=== PATIENT | female | born 1965 ===

== ENCOUNTER 2018-01-29 19:58 | Observation (INO) | payer SELFPAY ==
[2018-01-29] MEDS ORDERED: Sodium Chloride 0.9% 1,000 ML IV STA ×2 (20:32→23:37)
--- NOTE | 2018-01-29 20:35 | ED PDOC ---
HPI: Abdomen Time Seen by Provider: 01/29/18 20:18 Chief Complaint (Nursing): Abdominal Pain Chief Complaint (Provider): abdominal pain History Per: Patient History/Exam Limitations: no limitations Onset/Duration Of Symptoms: Hrs (1) Current Symptoms Are (Timing): Still Present Location Of Pain/Discomfort: RLQ Associated Symptoms: Nausea, Vomiting Additional History Per: Patient Additional Complaint(s): 52 y/o female brought in by EMS for evaluation of right-sided abdominal pain x 1 hour. Associated nausea, vomiting. Patient states symptoms started shortly after eating a can of spaghetti-o's. Denies fever, chest pain, shortness of breath, palpitations, changes in bowel movements, urinary symptoms. Past Medical History Reviewed: Historical Data, Nursing Documentation, Vital Signs Vital Signs: Last Vital Signs Temp 99.5 F 01/30/18 03:39 Pulse 94 H 01/30/18 03:39 Resp 18 01/30/18 03:39 BP 158/95 H 01/30/18 03:39 Pulse Ox 98 01/30/18 04:12 - Medical History PMH: Diabetes, HTN, Hypercholesterolemia - Surgical History Surgical History: No Surg Hx - Family History Family History: States: No Known Family Hx - Living Arrangements Living Arrangements: With Family - Allergies Allergies/Adverse Reactions: Allergies Allergy/AdvReac Type Severity Reaction Status Date / Time No Known Allergies Allergy Verified 01/29/18 20:00 Review of Systems ROS Statement: Except As Marked, All Systems Reviewed And Found Negative Gastrointestinal: Positive for: Nausea, Vomiting, Abdominal Pain Physical Exam - Reviewed Nursing Documentation Reviewed: Yes Vital Signs Reviewed: Yes - Physical Exam Appears: Positive for: Well, Non-toxic, Uncomfortable (actively vomiting) Head Exam: Positive for: ATRAUMATIC, NORMAL INSPECTION, NORMOCEPHALIC Skin: Positive for: Normal Color Eye Exam: Positive for: Normal appearance ENT: Positive for: Normal ENT Inspection Cardiovascular/Chest: Positive for: Regular Rate, Rhythm Respiratory: Positive for: Normal Breath Sounds Gastrointestinal/Abdominal: Positive for: Normal Exam, Bowel Sounds, Soft, Tenderness (RLQ, right flank). Negative for: Distended, Guarding, Rebound Back: Positive for: Normal Inspection Extremity: Positive for: Normal ROM Neurologic/Psych: Positive for: Alert, Oriented (x3) - Laboratory Results Result Diagrams: 01/29/18 20:35 01/29/18 20:35 - ECG ECG: Positive for: Viewed By Me (reviewed by ED attending) ECG Rhythm: Positive for: Sinus Rhythm O2 Sat by Pulse Oximetry: 98 - Radiology X-Ray: Viewed By Me X-Ray Interpretation: No Acute Disease - Progress ED Course And Treament: labs, urine, CT abd/pelvis, IV fluids, IV toradol, IV pepcid, IV zofran EXAM: CT Abdomen and Pelvis With Intravenous Contrast CLINICAL HISTORY: 52 years old, female; Pain; Abdominal pain; Localized; Right; Additional info: Right abdominal pain, vomiting TECHNIQUE: Axial computed tomography images of the abdomen and pelvis with intravenous contrast. All CT scans at this facility use one or more dose reduction techniques, viz.: automated exposure control; ma/kV adjustment per patient size (including targeted exams where dose is matched to indication; i.e. head); or iterative reconstruction technique. 705 images are submitted.Sagittal , axial and coronal MPR reformatted images are submitted. CONTRAST: 95 mL of [id number] administered intravenously. COMPARISON: No relevant prior studies available. FINDINGS: Lung bases: There is bibasilar atelectasis. ABDOMEN: Liver: Fatty liver. Gallbladder and bile ducts: Unremarkable. No ductal dilation. Pancreas: Unremarkable. No mass. No ductal dilation. Spleen: Unremarkable. No splenomegaly. Adrenals: Unremarkable. No mass. Kidneys and ureters: Right perinephric inflammatory change with moderate right hydroureteronephrosis and a 4-5 mm distal ureteral stone seen on image 170 series 3 representing acute obstructive uropathy. Left renal cyst. Stomach and bowel: Diverticulosis. No obstruction. No mucosal thickening. PELVIS: Appendix: Normal appendix. Bladder: Partially decompressed bladder with bladder wall thickening. Correlation with urinalysis is recommended only if clinical cystitis is suspected. Reproductive: Anteriorly displaced uterus. High riding ovaries. ABDOMEN and PELVIS: Intraperitoneal space: Unremarkable. No free air. No significant fluid collection. Bones/joints: No acute fracture. No dislocation. Soft tissues: Unremarkable. Vasculature: The aorta demonstrates calcified plaque and is mildly ectatic but normal in caliber. No abdominal aortic aneurysm. Lymph nodes: Unremarkable. No enlarged lymph nodes. IMPRESSION: 1. Right perinephric inflammatory change with moderate right hydroureteronephrosis and a 4-5 mm distal ureteral stone seen on image 170 series 3 representing acute obstructive uropathy. On re-eval, patient still reports pain. IV morphine ordered. Flomax PO ordered Case discussed with ED attending Dr. Bellamy, will admit for observation for intractable vomiting/pain secondary to obstructive uropathy. Disposition - Disposition
[2018-01-29] MEDS ORDERED: Famotidine 20mg/50ml 20 MG/50 ML BAG IVPB ONE ×2 (20:42→20:45)
[2018-01-29] MEDS ORDERED: Famotidine 20mg/50ml Premix IVPB STA (20:43)
[2018-01-29 20:50] LABS: BASO # 0.1 K/uL (0.0-0.2); BASO % 0.6 % (0.0-2.0); EOS % 0.3 % (0.0-4.0); HEMOGLOBIN 14.1 g/dL (12.0-16.0); LYMPH % 13.4 % (20.0-40.0); MEAN CELL VOLUME 94.9 fl (81.0-99.0); MEAN CORPUSCULAR HEMOGLOBIN 30.5 pg (27.0-31.0); MEAN CORPUSCULAR HGB CONC 32.1 g/dL (33.0-37.0); MEAN PLATELET VOLUME 11.9 fl (7.2-11.7); MONO # 1.1 K/uL (0.0-0.8); MONO % 7.1 % (0.0-10.0); NEUT # 11.8 K/uL (1.8-7.0); NEUT % 78.6 % (50.0-75.0); RBC 4.62 Mil/uL (3.80-5.20); RED CELL DISTRIBUTION WIDTH 14.4 % (11.5-14.5)
[2018-01-29 20:53] LABS: ALB/GLOB RATIO 0.9 (1.0-2.1); ALBUMIN 4.2 g/dL (3.5-5.0); ALT/SGPT 22 U/L (9-52); AST/SGOT 18 U/L (14-36); BLOOD UREA NITROGEN 26 mg/dl (7-17); CALCIUM 9.6 mg/dL (8.4-10.2); GFR AFRICAN-AMERICAN > 60; GFR NON-AFRICAN AMERICAN > 60; LIPASE 67 U/L (23-300)
[2018-01-29 20:59] LABS: INR 1.1 (0.9-1.2); PARTIAL THROMBOPLASTIN TIME 31.8 Seconds (25.6-37.1); PROTHROMBIN TIME 12.2 Seconds (9.8-13.1)
[2018-01-29] MEDS ORDERED: Iohexol 300 100 ML IJ ONE (22:06)
[2018-01-29] MEDS ORDERED: Sodium Chloride 0.9% 50 ML IV ONE (22:06)
[2018-01-29] MEDS ORDERED: DiphenhydrAMINE 50 mg/ml Inj IV ONE (23:37)
[2018-01-29] MEDS ORDERED: Promethazine 25 MG in Sodium Chloride 0.9% 100 ML IVPB STA (23:41)
[2018-01-29] MEDS ORDERED: DiphenhydrAMINE 50 mg/ml Inj ONE (23:58)
[2018-01-30] MEDS ORDERED: Morphine 4 MG/ML VIAL IVP ONE (01:14)
[2018-01-30] MEDS ORDERED: Morphine 4 MG/ML VIAL ONE (01:21)
[2018-01-30 01:35] LABS: SQUAMOUS EPITHIAL 4 /hpf (0-5); URINE BILIRUBIN NEGATIVE (NEGATIVE); URINE BLOOD LARGE (NEGATIVE); URINE CLARITY CLOUDY (Clear); URINE COLOR YELLOW (YELLOW); URINE GLUCOSE (UA) NEG (Normal); URINE LEUKOCYTE ESTERASE TRACE Leu/uL (Negative); URINE PROTEIN 100 mg/dL (NEGATIVE); URINE UROBILINOGEN 0.2-1.0 mg/dL (0.2-1.0)
--- NOTE | 2018-01-30 02:05 | CP.PCM.HP ---
History of Present Illness - History of Present Illness History of Present Illness: CC: pain on the right side HPI: 52 year old female PMH DM on Metformin, HTN, presents with approximately 6- 12 hour history of severe R sided non radiating flank pain associated with nausea and vomiting after eating dinner this evening. Patient is somnolent and appears comfortable at this time after receiving morphine. CT abd pel showed moderate R hydronephrosis and a 4-5mm obstructing distal calculi. WBC 15K, afebrile, vitals stable. Mild azotemia + dehydration, +UA. Pain controlled in ED , abx initiated. Urology consult Dr. Diaz. Admit to MS, NPO for possible procedure. ROS: per HPI all other systems reviewed and negative PMD: Dr. 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, denies ETOH, IVDU Meds as below NKDA Present on Admission - Present on Admission Any Indicators Present on Admission: No Past Patient History - Past Social History Smoking Status: Never Smoked - CARDIAC Hx Hypertension: Yes - ENDOCRINE/METABOLIC Hx Diabetes Mellitus Type 2: Yes - PSYCHIATRIC Hx Substance Use: No - SURGICAL HISTORY Hx Surgeries: No - ANESTHESIA Hx Anesthesia: No Meds Allergies/Adverse Reactions: Allergies Allergy/AdvReac Type Severity Reaction Status Date / Time No Known Allergies Allergy Verified 01/29/18 20:00 Physical Exam - Constitutional Appears: Non-toxic, No Acute Distress - Head Exam Head Exam: ATRAUMATIC, NORMOCEPHALIC - Eye Exam Eye Exam: EOMI, Normal appearance, PERRL - ENT Exam ENT Exam: Mucous Membranes Moist, Normal Oropharynx - Respiratory Exam Respiratory Exam: Clear to Auscultation Bilateral, NORMAL BREATHING PATTERN. absent: Respiratory Distress - Cardiovascular Exam Cardiovascular Exam: RRR, +S1, +S2 - GI/Abdominal Exam GI & Abdominal Exam: Normal Bowel Sounds, Soft. absent: Mass, Tenderness - Extremities Exam Extremities exam: Positive for: normal capillary refill, pedal pulses present - Back Exam Back exam: CVA tenderness (R). absent: CVA tenderness (L), rash noted - Neurological Exam Neurological exam: Alert, Reflexes Normal - Psychiatric Exam Psychiatric exam: Normal Affect, Normal Mood - Skin Skin Exam: Dry, Warm Results - Vital Signs Recent Vital Signs: Last Vital Signs Temp 99.0 F 01/30/18 00:09 Pulse 87 06/20/18 00:09 Resp 18 01/30/18 00:09 BP 154/85 H 01/30/18 00:09 Pulse Ox 98 01/30/18 01:40 - Labs Result Diagrams: 01/29/18 20:35 01/29/18 20:35 Labs: Laboratory Results - last 24 hr 01/29/18 01/29/18 01/29/18 20:35 20:35 20:35 WBC 15.0 H RBC 4.62 Hgb 14.1 Hct 43.8 MCV 94.9 MCH 30.5 MCHC 32.1 L RDW 14.4 Plt Count 152 MPV 11.9 H Neut % (Auto) 78.6 H Lymph % (Auto) 13.4 L [place] % (Auto) 7.1 Eos % (Auto) 0.3 Baso % (Auto) 0.6 Neut # (Auto) 11.8 H Lymph # (Auto) 2.0 [place] # (Auto) 1.1 H Eos # (Auto) 0.0 Baso # (Auto) 0.1 PT 12.2 INR 1.1 APTT 31.8 Sodium 141 Potassium 4.1 Chloride 105 Carbon Dioxide 25 Anion Gap 15 BUN 26 H Creatinine 0.9 Est GFR ( Amer) > 60 Est GFR (Non-Af Amer) > 60 POC Glucose (mg/dL) Random Glucose 131 H Calcium 9.6 Total Bilirubin 0.8 AST 18 ALT 22 Alkaline Phosphatase 81 Total Protein 8.9 H Albumin 4.2 Globulin 4.6 H Albumin/Globulin Ratio 0.9 L Lipase 67 Urine Color Urine Clarity Urine pH Ur Specific [place] Urine Protein Urine Glucose (UA) Urine Ketones Urine Blood Urine Nitrate Urine Bilirubin Urine Urobilinogen Ur Leukocyte Esterase Urine RBC (Auto) Urine Microscopic WBC Ur Squamous Epith Cells 01/29/18 01/30/18 20:39 01:10 WBC RBC Hgb Hct MCV MCH MCHC RDW Plt Count MPV Neut % (Auto) Lymph % (Auto) [place] % (Auto) Eos % (Auto) Baso % (Auto) Neut # (Auto) Lymph # (Auto) [place] # (Auto) Eos # (Auto) Baso # (Auto) PT INR APTT Sodium Potassium Chloride Carbon Dioxide Anion Gap BUN Creatinine Est GFR ( Amer) Est GFR (Non-Af Amer) POC Glucose (mg/dL) 139 H Random Glucose Calcium Total Bilirubin AST ALT Alkaline Phosphatase Total Protein Albumin Globulin Albumin/Globulin Ratio Lipase Urine Color Yellow Urine Clarity Cloudy Urine pH 6.0 Ur Specific [place] 1.023 Urine Protein 100 Urine Glucose (UA) Neg Urine Ketones 20 Urine Blood Large Urine Nitrate Negative Urine Bilirubin Negative Urine Urobilinogen 0.2-1.0 Ur Leukocyte Esterase Trace Urine RBC (Auto) 2461 H Urine Microscopic WBC 24 H Ur Squamous Epith Cells 4 Assessment & Plan - Assessment and Plan (Free Text) Plan: 52 year old female PMH DM on Metformin, HTN, presents with approximately 6-12 hour history of severe R sided non radiating flank pain associated with nausea and vomiting after eating dinner this evening. Patient is somnolent and appears comfortable at this time after receiving morphine. CT abd pel showed moderate R hydronephrosis and a 4-5mm obstructing distal calculi. WBC 15K, afebrile, vitals stable. Mild azotemia + dehydration, +UA. Pain controlled in ED, abx initiated. Urology consult Dr. Diaz. Admit to MS, NPO for possible procedure. Discussed with ED physician. Nephrolithiasis with Hydronephrosis Concern for pyelonephritis - WBC 15K, afebrile on admission - +UA, cultures pending - CTAP +mod R hydronephrosis and 4-5mm obstructing distal calculi - Ceftriaxone initiated - Flomax daily - Urology Consult Dr. Diaz - NPO with meds, maintenance fluids - Pain control: Moderate - Acetaminophen 975mg q8 PRN Severe - Toradol 30 mg q6 hours PRN - Strain urine, strict I/O Azotemia, Dehydration - BUN 26 on admission - pt received 2L NS in ED - continue maintenance fluids while NPO, repeat BMP DM - stable, on Meformin at home, hold during admission - Accuchecks and low ISS for coverage HTN - pt unable to confirm home med at this time - Lopressor 25 mg q12 hours initiated for HR >90s and HTN - monitor VTE SCDs
[2018-01-30] MEDS: Potassium Ch 20mEq in D5-1/2NS 1,000 ML IV SCH ×3 (02:40→22:16)
[2018-01-30] MEDS ORDERED: cefTRIAXone (Rocephin) 1 gm Inj ONE (02:50)
[2018-01-30 03:21] LABS: VENOUS BLOOD GAS PCO2 43 mmHg (40-60); VENOUS BLOOD GAS PO2 49 mm/Hg (30-55); VENOUS BLOOD PH 7.35 (7.32-7.43)
[2018-01-30 06:33] LABS: HEMOGLOBIN 13.1 g/dL (12.0-16.0); MEAN CELL VOLUME 95.4 fl (81.0-99.0); MEAN CORPUSCULAR HEMOGLOBIN 30.9 pg (27.0-31.0); MEAN CORPUSCULAR HGB CONC 32.4 g/dL (33.0-37.0); RBC 4.25 Mil/uL (3.80-5.20); RED CELL DISTRIBUTION WIDTH 14.1 % (11.5-14.5); WHITE BLOOD COUNT 13.6 K/uL (4.8-10.8)
[2018-01-30] MEDS: Insulin Lispro (humaLOG) 100 Units/ml Inj SC SCH ×4 (08:00→22:12)
[2018-01-30 08:14] LABS: BLOOD UREA NITROGEN 22 mg/dl (7-17)
[2018-01-30 08:15] LABS: CALCIUM 8.8 mg/dL (8.4-10.2); GFR AFRICAN-AMERICAN > 60; GFR NON-AFRICAN AMERICAN 58
--- NOTE | 2018-01-30 08:24 | RAD ---
HISTORY: admit COMPARISON: No prior. FINDINGS: LUNGS: Shallow lung volumes. No consolidation. PLEURA: No significant pleural effusion identified, no pneumothorax apparent. CARDIOVASCULAR: Top-normal heart size. Central pulmonary vascular congestion suspect -shallow lung volumes/vascular crowding and large body habitus likely accentuating OSSEOUS STRUCTURES: No significant abnormalities. VISUALIZED UPPER ABDOMEN: Normal. OTHER FINDINGS: None. IMPRESSION: Central pulmonary vascular congestion suspect -shallow lung volumes/vascular crowding and large body habitus likely accentuating
--- NOTE | 2018-01-30 09:22 | CARD ---
APPROVED REPORT EKG Measurement Heart [id number] <Conclusion> Normal sinus rhythm Normal ECG
--- NOTE | 2018-01-30 09:45 | CT ---
PROCEDURE: CT Abdomen and Pelvis with contrast HISTORY: right abdominal pain, vomiting COMPARISON: None. TECHNIQUE: Contrast dose: 95 mL Omnipaque 300 Radiation dose: Total exam DLP = 1144 mGy-cm. This CT exam was performed using one or more of the following dose reduction techniques: Automated exposure control, adjustment of the mA and/or kV according to patient size, and/or use of iterative reconstruction technique. FINDINGS: LOWER THORAX: At each lung base are thin discoid atelectatic and fibrotic changes. This is slightly more conspicuous in the lingula - inflammatory changes are believed most likely. LIVER: Unremarkable. No gross lesion or ductal dilatation. GALLBLADDER AND BILE DUCTS: Unremarkable. PANCREAS: Unremarkable. No gross lesion or ductal dilatation. SPLEEN: Unremarkable. ADRENALS: Unremarkable. No mass. KIDNEYS AND URETERS: No renal calculi seen. Minimal right perinephric inflammatory like stranding. Mild -moderate right hydro nephrosis and mild -moderate right hydroureter. Obstructive uropathy per 4 to 5 mm distal right ureteral UV junctional calculus (series 3, image 1169 and 170) Left upper renal pole cyst 1.3 cm VASCULATURE: No suspicious masses, areas of architectural distortion. No cutaneous or subcutaneous abnormalities. No abnormalities within visualized ducts. No aortic aneurysm. BOWEL: Unremarkable. No obstruction. No gross mural thickening. APPENDIX: Normal appendix. PERITONEUM: Unremarkable. No free fluid. No free air. LYMPH NODES: Unremarkable. No enlarged lymph nodes. BLADDER: Unremarkable. REPRODUCTIVE: Within normal limits. BONES: No acute fracture. OTHER FINDINGS: None. IMPRESSION: Acute/ subacute obstructive uropathy -right perinephric fat stranding, right hydro nephro ureteral nephrosis - secondary to 4 to 5 mm obstructing calculus distal right ureter- at ureteral vesicle junction. Concordant results (preliminary interpretation) provided by [employer].
[2018-01-30] MEDS ORDERED: Famotidine 20mg/50ml Premix IVPB ONE (12:46)
[2018-01-30] MEDS ORDERED: Famotidine 20mg/50ml 20 MG/50 ML BAG IVPB ONE ×2 (13:00→14:21)
[2018-01-31 06:37] LABS: BASO # 0.1 K/uL (0.0-0.2); BASO % 0.9 % (0.0-2.0); EOS # 0.1 K/uL (0.0-0.7); EOS % 0.6 % (0.0-4.0); HEMOGLOBIN 11.6 g/dL (12.0-16.0); LYMPH # 3.2 K/uL (1.0-4.3); LYMPH % 31.7 % (20.0-40.0); MEAN CORPUSCULAR HEMOGLOBIN 30.6 pg (27.0-31.0); MEAN CORPUSCULAR HGB CONC 32.2 g/dL (33.0-37.0); MEAN PLATELET VOLUME 11.4 fl (7.2-11.7); MONO # 1.1 K/uL (0.0-0.8); MONO % 11.2 % (0.0-10.0); NEUT # 5.6 K/uL (1.8-7.0); NEUT % 55.6 % (50.0-75.0); NRBC % 0.1 % (0.0-0.0); RBC 3.78 Mil/uL (3.80-5.20); RED CELL DISTRIBUTION WIDTH 14.5 % (11.5-14.5)
[2018-01-31 06:45] LABS: BLOOD UREA NITROGEN 21 mg/dl (7-17); CALCIUM 8.5 mg/dL (8.4-10.2); GFR AFRICAN-AMERICAN > 60; GFR NON-AFRICAN AMERICAN > 60
[2018-01-31] MEDS: Insulin Lispro (humaLOG) 100 Units/ml Inj SC SCH ×2 (07:53→12:03)
[2018-01-31] MEDS ORDERED: Sodium Chloride 0.45% 1,000 ML IV SCH (08:15)
--- NOTE | 2018-01-31 10:12 | CT ---
PROCEDURE: CT Abdomen and Pelvis without intravenous contrast HISTORY: renal colic COMPARISON: CT abdomen and pelvis 01/29/2018 TECHNIQUE: Technique. Contrast dose: None Radiation dose: Total exam DLP = 1144 mGy-cm. This CT exam was performed using one or more of the following dose reduction techniques: Automated exposure control, adjustment of the mA and/or kV according to patient size, and/or use of iterative reconstruction technique. FINDINGS: LOWER THORAX: The previously referenced discoid atelectatic and/or fibrotic changes at each lung base are similar. LIVER: Unremarkable. No gross lesion or ductal dilatation. GALLBLADDER AND BILE DUCTS: Unremarkable. PANCREAS: Unremarkable. No gross lesion or ductal dilatation. SPLEEN: Unremarkable. ADRENALS: Unremarkable. No mass. KIDNEYS AND URETERS: No right renal calculi noted. The prior right perinephric minimal inflammatory like stranding is less pronounced on the current study. Mild-moderate right hydronephrosis and mild is renoted. The distal right ureteral ureteral vesicle junctional calculus, L4-5 mm is similar in appearance per at this time and has not progressed/migrated into the bladder. Renoted - Left upper renal pole cyst 1.3 cm VASCULATURE: Unremarkable. No aortic aneurysm. BOWEL: Unremarkable. No obstruction. No gross mural thickening. APPENDIX: Unremarkable. Normal appendix. PERITONEUM: Unremarkable. No free fluid. No free air. LYMPH NODES: Unremarkable. No enlarged lymph nodes. BLADDER: Unremarkable. REPRODUCTIVE: Unremarkable. BONES: No acute fracture. OTHER FINDINGS: None. IMPRESSION: No right renal calculi noted. The prior right perinephric minimal inflammatory like stranding is less pronounced on the current study. Mild-moderate right hydronephrosis and mild is renoted. The distal right ureteral ureterovesical junctional calculus, L4-5 mm is similar in appearance. It has not progressed/migrated into the bladder. Renoted - Left upper renal pole cyst 1.3 cm
[2018-01-31 16:15] VITALS: BP 142/70; PULSE 69; RESP 20; TEMP 97.6; O2SAT 98
--- NOTE | 2018-01-31 18:07 | CP.PCM.PN ---
Subjective - Date & Time of Evaluation Date of Evaluation: 01/31/18 Time of Evaluation: 14:00 - Subjective Subjective: Patient seen and examined bedside. Feeling well. Denies any pain or discomfort . Voiding freely Hemodynamically stable, afrebrile Repeat CT abdomen and pelvis still shows distal right ureterovesicular junction stone For OR today for stent placement Objective - Vital Signs/Intake and Output Vital Signs (last 24 hours): Temp Pulse Resp BP Pulse Ox 97.6 F 69 20 142/70 98 01/31/18 16:15 01/31/18 16:15 01/31/18 16:15 01/31/18 16:15 01/31/18 16:15 Intake and Output: 01/31/18 01/31/18 06:59 18:59 Intake Total 1375 Balance 1375 - Medications Medications: Current Medications Acetaminophen (Tylenol 325mg Tab) 650 mg PO Q6 PRN PRN Reason: Fever >100.4 F Acetaminophen (Tylenol 325mg Tab) 975 mg PO Q8 PRN PRN Reason: Pain, moderate (4-7) Clonazepam (Klonopin) 0.5 mg PO HS [facility] Last Admin: 01/30/18 22:20 Dose: 0.5 mg Ceftriaxone Sodium 1 gm/ (Sodium Chloride) 100 mls @ 100 mls/hr IVPB DAILY [facility] PRN Reason: Protocol Last Admin: 01/31/18 08:05 Dose: 100 mls/hr Sodium Chloride (Sodium Chloride 0.45%) 1,000 mls @ 100 mls/hr IV .Q10H [facility] Stop: 02/01/18 08:02 Last Admin: 01/31/18 08:46 Dose: 100 mls/hr Insulin Human Lispro (Humalog) 0 units SC ACHS [facility] PRN Reason: Protocol Last Admin: 01/31/18 12:03 Dose: Not Given Ketorolac Tromethamine (Toradol) 30 mg IVP Q6 PRN PRN Reason: Pain, severe (8-10) Metoprolol Tartrate (Lopressor) 25 mg PO Q12 [facility] Last Admin: 01/31/18 08:15 Dose: Not Given Ondansetron HCl (Zofran Inj) 4 mg IVP Q6 PRN PRN Reason: Nausea/Vomiting Tamsulosin HCl (Flomax) 0.4 mg PO DAILY [facility] Last Admin: 01/31/18 08:08 Dose: 0.4 mg - Labs Labs: 01/31/18 05:50 01/31/18 05:50 PT 12.2 Seconds (9.8-13.1) 01/29/18 20:35 INR 1.1 (0.9-1.2) 01/29/18 20:35 APTT 31.8 Seconds (25.6-37.1) 01/29/18 20:35 - Constitutional Appears: Non-toxic, No Acute Distress, Other (obese) - Head Exam Head Exam: ATRAUMATIC, NORMAL INSPECTION, NORMOCEPHALIC - Eye Exam Eye Exam: EOMI, Normal appearance, PERRL Pupil Exam: NORMAL ACCOMODATION - ENT Exam ENT Exam: Mucous Membranes Moist, Normal Exam - Neck Exam Neck Exam: Full ROM, Normal Inspection - Respiratory Exam Respiratory Exam: Clear to Ausculation Bilateral, NORMAL BREATHING PATTERN. absent: Rhonchi, Wheezes - Cardiovascular Exam Cardiovascular Exam: REGULAR RHYTHM, RRR, +S1, +S2. absent: JVD - GI/Abdominal Exam GI & Abdominal Exam: Soft, Normal Bowel Sounds. absent: Distended, Guarding, Rebound - Rectal Exam Rectal Exam: Deferred - Extremities Exam Extremities Exam: Full ROM, Normal Capillary Refill, Normal Inspection. absent : Pedal Edema - Back Exam Back Exam: NORMAL INSPECTION - Neurological Exam Neurological Exam: Alert, Awake, CN II-XII Intact - Psychiatric Exam Psychiatric exam: Normal Affect, Normal Mood - Skin Skin Exam: Dry, Intact, Normal Color, Warm Assessment and Plan - Assessment and Plan (Free Text) Assessment: 52 year old female with PMH DM on Metformin, HTN, presented with approximately 6-12 hour history of severe R sided non radiating flank pain associated with nausea and vomiting after eating dinner.CT of abdomen and pelvis showed moderate Right hydronephrosis and a 4-5mm obstructing distal calculi and some perinephric strandin. WBC 15K, afebrile.patient placed under observation in med /surg and Urology Dr. Diaz consulted.Repeat Ct showed still presence of right ureterovesicular junction stone 4 mm with right hydronephrosis. 1.Nephrolithiasis with Hydronephrosis and pyelonephritis WBC 15K, afebrile on admission urine and blood cx with no growth but Ct showed perinephric stranding WBC trending down from 15 K --10 k while on Rocephin Repeat Ct showed persistabnt stone to distal right uretorovesicular junction and hydronephrosis On rocephin and Flomax urology consulted Dr. Diaz.For OR today for stent placement Continue pain management Strain urine 2.Azotemia, Dehydration BUN 26 on admission received 2L NS in ED continue maintenance fluids while NPO, repeat BMP 3.DM stable, on Meformin at home, hold during admission Accuchecks and low ISS for coverage 4.HTN unable to confirm home med at this time Lopressor 25 mg q12 hours with holding parameters 5. DVt prophylaxis SCD Dispo: plan to d/c home on Cipro Po once stent placed Will need follow up with Dr funk for stent removal
[2018-01-31] MEDS ORDERED: Sevoflurane - Inhalation Anesthetic Liq (250 ml) ONE (18:19)
--- NOTE | 2018-01-31 18:59 | CP.PCM.DIS ---
Provider - Provider Date of Admission: 01/30/18 01:30 Attending physician: Natalee Cox DO Primary care physician: Viji Consults: urology consult Time Spent in preparation of Discharge (in minutes): 15 Hospital Course - Lab Results Lab Results: Micro Results 01/30/18 01:10 Urine,Clean Catch Urine Culture - Final No Growth (<1,000 CFU/ML) 01/30/18 02:35 Blood-Venous Blood Culture - Preliminary NO GROWTH AFTER 24 HOURS 01/30/18 02:47 Blood-Venous Blood Culture - Preliminary NO GROWTH AFTER 24 HOURS Most Recent Lab Values WBC 10.0 K/uL (4.8-10.8) 01/31/18 05:50 RBC 3.78 Mil/uL (3.80-5.20) L 01/31/18 05:50 Hgb 11.6 g/dL (12.0-16.0) L 01/31/18 05:50 Hct 35.9 % (34.0-47.0) 01/31/18 05:50 MCV 95.0 fl (81.0-99.0) 01/31/18 05:50 MCH 30.6 pg (27.0-31.0) 01/31/18 05:50 MCHC 32.2 g/dL (33.0-37.0) L 01/31/18 05:50 RDW 14.5 % (11.5-14.5) 01/31/18 05:50 Plt Count 134 K/uL (130-400) 01/31/18 05:50 MPV 11.4 fl (7.2-11.7) 01/31/18 05:50 Neut % (Auto) 55.6 % (50.0-75.0) 01/31/18 05:50 Lymph % (Auto) 31.7 % (20.0-40.0) 01/31/18 05:50 [place] % (Auto) 11.2 % (0.0-10.0) H 01/31/18 05:50 Eos % (Auto) 0.6 % (0.0-4.0) 01/31/18 05:50 Baso % (Auto) 0.9 % (0.0-2.0) 01/31/18 05:50 Neut # (Auto) 5.6 K/uL (1.8-7.0) 01/31/18 05:50 Lymph # (Auto) 3.2 K/uL (1.0-4.3) 01/31/18 05:50 [place] # (Auto) 1.1 K/uL (0.0-0.8) H 01/31/18 05:50 Eos # (Auto) 0.1 K/uL (0.0-0.7) 01/31/18 05:50 Baso # (Auto) 0.1 K/uL (0.0-0.2) 01/31/18 05:50 PT 12.2 Seconds (9.8-13.1) 01/29/18 20:35 INR 1.1 (0.9-1.2) 01/29/18 20:35 APTT 31.8 Seconds (25.6-37.1) 01/29/18 20:35 pO2 49 mm/Hg (30-55) 01/30/18 03:17 VBG pH 7.35 (7.32-7.43) 01/30/18 03:17 VBG pCO2 43 mmHg (40-60) 01/30/18 03:17 VBG HCO3 23.0 mmol/L 01/30/18 03:17 VBG Total CO2 25.0 mmol/L (22-28) 01/30/18 03:17 VBG O2 Sat (Calc) 88.0 % (40-65) H 01/30/18 03:17 VBG Base Excess -2.0 mmol/L (0.0-2.0) L 01/30/18 03:17 VBG Potassium 4.2 mmol/L (3.6-5.2) 01/30/18 03:17 Sodium 138.0 mmol/L (132-148) 01/30/18 03:17 Chloride 106.0 mmol/L (98-107) 01/30/18 03:17 Glucose 149 mg/dL (65-105) H 01/30/18 03:17 Lactate 0.8 mmol/L (0.7-2.1) 01/30/18 03:17 FiO2 21.0 % 01/30/18 03:17 Sodium 141 mmol/l (132-148) 01/31/18 05:50 Potassium 4.2 MMOL/L (3.6-5.0) 01/31/18 05:50 Chloride 109 mmol/L (98-107) H 01/31/18 05:50 Carbon Dioxide 26 mmol/L (22-30) 01/31/18 05:50 Anion Gap 10 (10-20) 01/31/18 05:50 BUN 21 mg/dl (7-17) H 01/31/18 05:50 Creatinine 0.7 mg/dl (0.7-1.2) 01/31/18 05:50 Est GFR ( Amer) > 60 01/31/18 05:50 Est GFR (Non-Af Amer) > 60 01/31/18 05:50 POC Glucose (mg/dL) 77 mg/dL (65-110) 01/31/18 16:36 Random Glucose 102 mg/dL (65-105) 01/31/18 05:50 Calcium 8.5 mg/dL (8.4-10.2) 01/31/18 05:50 Total Bilirubin 0.8 mg/dl (0.2-1.3) 01/29/18 20:35 AST 18 U/L (14-36) 01/29/18 20:35 ALT 22 U/L (9-52) 01/29/18 20:35 Alkaline Phosphatase 81 U/L (38-126) 01/29/18 20:35 Total Protein 8.9 G/DL (6.3-8.2) H 01/29/18 20:35 Albumin 4.2 g/dL (3.5-5.0) 01/29/18 20:35 Globulin 4.6 gm/dL (2.2-3.9) H 01/29/18 20:35 Albumin/Globulin Ratio 0.9 (1.0-2.1) L 01/29/18 20:35 Lipase 67 U/L (23-300) 01/29/18 20:35 Venous Blood Potassium 4.2 mmol/L (3.6-5.2) 01/30/18 03:17 Urine Color Yellow (YELLOW) 01/30/18 01:10 Urine Clarity Cloudy (Clear) 01/30/18 01:10 Urine pH 6.0 (5.0-8.0) 01/30/18 01:10 Ur Specific [place] 1.023 (1.003-1.030) 01/30/18 01:10 Urine Protein 100 mg/dL (NEGATIVE) 01/30/18 01:10 Urine Glucose (UA) Neg mg/dL (Normal) 01/30/18 01:10 Urine Ketones 20 mg/dL (NEGATIVE) 01/30/18 01:10 Urine Blood Large (NEGATIVE) 01/30/18 01:10 Urine Nitrate Negative (NEGATIVE) 01/30/18 01:10 Urine Bilirubin Negative (NEGATIVE) 01/30/18 01:10 Urine Urobilinogen 0.2-1.0 mg/dL (0.2-1.0) 01/30/18 01:10 Ur Leukocyte Esterase Trace Consuelo/uL (Negative) 01/30/18 01:10 Urine RBC (Auto) 2461 /hpf (0-3) H 01/30/18 01:10 Urine Microscopic WBC 24 /hpf (0-5) H 01/30/18 01:10 Ur Squamous Epith Cells 4 /hpf (0-5) 01/30/18 01:10 - Hospital Course Hospital Course: 52 year old female with PMH DM on Metformin, HTN, presented with approximately 6-12 hour history of severe R sided non radiating flank pain associated with nausea and vomiting after eating dinner.CT of abdomen and pelvis showed moderate Right hydronephrosis and a 4-5mm obstructing distal calculi and some perinephric strandin. WBC 15K, afebrile.patient placed under observation in med /surg and Urology Dr. Diaz consulted.Repeat Ct showed still presence of right ureterovesicular junction stone 4 mm with right hydronephrosis.Patient at present feels asymptomatic and does not wish to wait for stent placement. She would like to go home. patient will leave the hospital AMA . Will give Flomax anD cipro PO follow upw ith urologist and PMD 1.Nephrolithiasis with Hydronephrosis and pyelonephritis WBC 15K, afebrile on admission urine and blood cx with no growth but Ct showed perinephric stranding WBC trending down from 15 K --10 k while on Rocephin Repeat Ct showed persistant stone to distal right uretorovesicular junction and hydronephrosis Was started on rocephin and Flomax urology consulted Dr. Diaz and recommended stent placement but patient wish not wait for procedure and wants to go home at her own risk Will give patient Cipro Po and Flomax tpo take at home Strain urine 2.Azotemia, Dehydration BUN 26 on admission received 2L NS in ED continue maintenance fluids while NPO, repeat BMP 3.DM stable, on Meformin at home, hold during admission Accuchecks and low ISS for coverage 4.HTN unable to confirm home med at this time Lopressor 25 mg q12 hours with holding parameters Followup with her PMD 5. Obesity BMI 45 Discharge Exam - Head Exam Head Exam: ATRAUMATIC, NORMAL INSPECTION, NORMOCEPHALIC Additional comments: obese - Eye Exam Eye Exam: EOMI, PERRL Pupil Exam: NORMAL ACCOMODATION - ENT Exam ENT Exam: Mucous Membranes Moist, Normal Exam - Neck Exam Neck exam: Full Rom, Normal Inspection - Respiratory Exam Respiratory Exam: Clear to PA & Lateral, NORMAL BREATHING PATTERN. absent: Rales, Rhonchi, Wheezes - Cardiovascular Exam Cardiovascular Exam: REGULAR RHYTHM, RRR, +S1, +S2. absent: JVD - GI/Abdominal Exam GI & Abdominal Exam: Normal Bowel Sounds, Soft. absent: Distended, Guarding, Rebound, Tenderness - Rectal Exam Rectal Exam: Deferred - Extremities Exam Extremities exam: normal capillary refill, normal inspection, pedal pulses present - Back Exam Back exam: NORMAL INSPECTION - Neurological Exam Neurological exam: Alert, CN II-XII Intact, Oriented x3 - Psychiatric Exam Psychiatric exam: Normal Affect, Normal Mood - Skin Skin Exam: Dry, Intact, Normal Color, Warm Discharge Plan - Discharge Medications Prescriptions: Ciprofloxacin [Cipro] 500 mg PO BID #14 tab Tamsulosin [Flomax] 0.4 mg PO DAILY #30 cap - Follow Up Plan Condition: STABLE Disposition: AGAINST MEDICAL ADVICE Instructions: Kidney Stones in Adults, How to Wash Your Hands Properly, Preventing Falls in the Older Adult
== END 2018-01-31 20:30 | disposition left against medical advice (07) ==
LOC: H.ER 19:58 → H.ERHOLD 01-30 01:30 → H.PEDS 01-30 14:48
PROVIDERS: ADMIT Student in an Organized Health Care Education/Training Program; ATTEND Student in an Organized Health Care Education/Training Program
DX: N13.6 Pyonephrosis (principal); E86.0 Dehydration; E11.9 Type 2 diabetes mellitus without complications; I10 Essential (primary) hypertension; E78.00 Pure hypercholesterolemia, unspecified; R79.89 Other specified abnormal findings of blood chemistry; E66.9 Obesity, unspecified; Z68.42 Body mass index [BMI] 45.0-49.9, adult; N13.9 Obstructive and reflux uropathy, unspecified
CPT/HCPCS: 36415; 71045; 74176; 74177; 80048; 80053; 81003; 81025; 82803; 82948; 83690; 85025; 85027; 85610; 85730; 87040; 87086; 93005; 96360; 96361; 96365; 96374; 99285; G0378; J0696; J1200; J1885; J2270; J2405; J2550; J2765; J7030; Q9967

== ENCOUNTER 2018-02-03 07:43 | Emergency (ER) | payer OTHER ==
[2018-02-03] MEDS ORDERED: Sodium Chloride 0.9% 1,000 ML IV STA (08:41)
--- NOTE | 2018-02-03 08:47 | ED PDOC ---
HPI: Back Time Seen by Provider: 02/03/18 08:20 Chief Complaint (Nursing): Back Pain Chief Complaint (Provider): Back Pain History Per: Patient History/Exam Limitations: no limitations Onset/Duration Of Symptoms: Days (c2), Persistent Current Symptoms Are (Timing): Still Present Additional Complaint(s): 52 year old female with medical history of diabetes, hypertension and hypercholesterolemia, presents to the emergency department with a complaint of right flank pain (pain: 7/10) associated with some dizziness and nausea ongoing since last night. Patient had recently signed out AMA on 01/31/18 from hospital after a 3 day admission for kidney stones with obstruction due to her frustrations with an assigned surgeon. She reports having experienced no pain since discharge until last night which has been continuous since onset. She denies any fever, chills or taking pain medication for relief. Patient is currently on Flomax and Cipro. PMD: Marisol Hallman MD Past Medical History Reviewed: Historical Data, Nursing Documentation, Vital Signs Vital Signs: Last Vital Signs Temp 98.1 F 02/03/18 08:12 Pulse 97 H 02/03/18 08:12 Resp 20 02/03/18 08:12 BP 140/89 02/03/18 08:12 Pulse Ox 100 02/03/18 08:12 - Medical History PMH: Diabetes, HTN, Hypercholesterolemia Denies: HIV, Chronic Kidney Disease - Surgical History Surgical History: No Surg Hx - Family History Family History: States: Unknown Family Hx - Social History Current smoker - smoking cessation education provided: Yes Alcohol: None Drugs: Cannabis - Home Medications Home Medications: Ambulatory Orders Medication Instructions Recorded Amlodipine Besylate/Benazepril 1 cap PO DAILY 01/30/18 [Amlodipine-Benazepril 5-10 mg] Aspirin [Ecotrin] 81 mg PO DAILY 01/30/18 Clonazepam [Klonopin] 0.5 mg PO HS 01/30/18 Rosuvastatin Calcium [Crestor] 10 mg PO HS 01/30/18 metFORMIN [glucOPHAGE] 500 mg PO BID 01/30/18 Ciprofloxacin [Cipro] 500 mg PO BID #14 tab 01/31/18 Tamsulosin [Flomax] 0.4 mg PO DAILY #30 cap 01/31/18 Ketorolac Tromethamine [Toradol] 10 mg PO Q6H PRN #19 tab 02/03/18 Lubiprostone [Amitiza] 24 mcg PO Q12H #14 capsule 02/03/18 - Allergies Allergies/Adverse Reactions: Allergies Allergy/AdvReac Type Severity Reaction Status Date / Time No Known Allergies Allergy Verified 01/29/18 20:00 Review of Systems ROS Statement: Except As Marked, All Systems Reviewed And Found Negative Constitutional: Negative for: Fever, Chills Respiratory: Negative for: Cough Gastrointestinal: Positive for: Nausea. Negative for: Vomiting Musculoskeletal: Positive for: Back Pain (right flank) Neurological: Positive for: Dizziness Physical Exam - Reviewed Nursing Documentation Reviewed: Yes Vital Signs Reviewed: Yes - Physical Exam Appears: Positive for: Non-toxic, No Acute Distress, Uncomfortable Cardiovascular/Chest: Positive for: Regular Rate, Rhythm Respiratory: Positive for: Normal Breath Sounds. Negative for: Respiratory Distress Gastrointestinal/Abdominal: Positive for: Normal Exam (LLQ), Soft, Tenderness ( RLQ) Back: Positive for: R CVA Tenderness. Negative for: L CVA Tenderness Extremity: Positive for: Normal ROM (upper/lower), Capillary Refill (<2 seconds bilaterally). Negative for: Pedal Edema (bilaterally) Neurologic/Psych: Positive for: Alert, Oriented. Negative for: Motor/Sensory Deficits - Laboratory Results Result Diagrams: 02/03/18 08:55 - ECG O2 Sat by Pulse Oximetry: 100 (RA) Pulse Ox Interpretation: Normal Medical Decision Making Medical Decision Making: Initial Impression: Flank pain; Kidney stones Initial Plan: * CMP * Urine dipstick * CBC * Glucose, POC * NS 1,000ml IV per 1,000mls/hr * Toradol 30mg IV * Urine culture * UA Time: 906 --BONITA Ward reports that patient had an episode of vomiting. --Zofran 4mg IVP ordered. Time: 914 --KUB xray and renal US additionally ordered to further evaluate right-sided hydronephrosis with ureteral stone noted on a previous CT ABD/pelvis (01/29/18). Time: 1200 --US renal FINDINGS: RIGHT KIDNEY: Measures: 11.9 x 6.2 x 6.5 cm. Normal in size, contour and echogenicity. No stone, solid mass lesion or hydronephrosis visualized. LEFT KIDNEY: Measures: cm. Normal in size and contour. A simple cyst is seen at the upper to midpole measure 1.5 x 1.5 x 1.2 cm with broad posterior acoustic enhancement associated. No solid lesion identified grossly. No stone, solid mass lesion or hydronephrosis visualized. OTHER FINDINGS: None. IMPRESSION: Solitary simple cyst upper midpole left kidney. The remainder of the examination is unremarkable bilaterally. No obstructive uropathy bilaterally. Scribe Attestation: Documented by Chikis Foster, acting as a scribe for Madeleine Lynne MD. Provider Scribe Attestation: All medical record entries made by the Scribe were at my direction and personally dictated by me. I have reviewed the chart and agree that the record accurately reflects my personal performance of the history, physical exam, medical decision making, and the department course for this patient. I have also personally directed, reviewed, and agree with the discharge instructions and disposition. case d/w Dr. Noriega who took care of this lady a few days ago when she was admitted. Based on the new labs results, pending urine culture that's repeated, and x-rays (copious gas and stool, and history of constipation), and Renal US ( no hydronephrosis), will discharge with meds for pain (not given on previous discharge) and constipation. Will continue current antibiotics unless repeat urine culture shows otherwise. Disposition - Clinical Impression Clinical Impression: UTI (urinary tract infection), Constipation - Patient ED Disposition Is Patient to be Admitted: No Doctor Will See Patient In The: Office Counseled Patient/Family Regarding: Diagnosis, Need For Followup, Rx Given - Disposition Referrals: Ronna Kerr [Outside] Disposition: Routine/Home Disposition Time: 12:30 Condition: STABLE Prescriptions: Ketorolac Tromethamine [Toradol] 10 mg PO Q6H PRN #19 tab PRN Reason: Pain, Moderate (4-7) Lubiprostone [Amitiza] 24 mcg PO Q12H #14 capsule Forms: [facility] (Kyrgyz) - POA Present On Arrival: None
[2018-02-03 09:26] LABS: BASO # 0.1 K/uL (0.0-0.2); BASO % 0.4 % (0.0-2.0); EOS # 0.1 K/uL (0.0-0.7); EOS % 0.7 % (0.0-4.0); HEMOGLOBIN 13.8 g/dL (12.0-16.0); LYMPH # 1.7 K/uL (1.0-4.3); LYMPH % 14.1 % (20.0-40.0); MEAN CELL VOLUME 93.2 fl (81.0-99.0); MEAN CORPUSCULAR HEMOGLOBIN 31.5 pg (27.0-31.0); MEAN CORPUSCULAR HGB CONC 33.8 g/dL (33.0-37.0); MEAN PLATELET VOLUME 11.4 fl (7.2-11.7); MONO # 1.5 K/uL (0.0-0.8); MONO % 11.9 % (0.0-10.0); NEUT % 72.9 % (50.0-75.0); NRBC % 0.1 % (0.0-0.0); RBC 4.39 Mil/uL (3.80-5.20); RED CELL DISTRIBUTION WIDTH 13.8 % (11.5-14.5); WHITE BLOOD COUNT 12.4 K/uL (4.8-10.8)
[2018-02-03 10:24] LABS: SQUAMOUS EPITHIAL 25 /hpf (0-5); URINE AMORPHOUS SEDIMENT RARE /ul (<OCC); URINE BILIRUBIN NEGATIVE (NEGATIVE); URINE BLOOD MODERATE (NEGATIVE); URINE CALCIUM OXALATE CRYSTALS OCC /hpf (<OCC); URINE CLARITY CLOUDY (Clear); URINE COLOR YELLOW (YELLOW); URINE GLUCOSE (UA) NEG (Normal); URINE LEUKOCYTE ESTERASE LARGE Leu/uL (Negative); URINE PROTEIN 30 mg/dL (NEGATIVE); URINE UROBILINOGEN 0.2-1.0 mg/dL (0.2-1.0)
--- NOTE | 2018-02-03 12:01 | US ---
PROCEDURE: Ultrasound of the Kidneys HISTORY: right hydro with ureteral stone on CT COMPARISON: None available. TECHNIQUE: Sonogram of the kidneys. FINDINGS: RIGHT KIDNEY: Measures: 11.9 x 6.2 x 6.5 cm. Normal in size, contour and echogenicity. No stone, solid mass lesion or hydronephrosis visualized. LEFT KIDNEY: Measures: cm. Normal in size and contour. A simple cyst is seen at the upper to midpole measure 1.5 x 1.5 x 1.2 cm with broad posterior acoustic enhancement associated. No solid lesion identified grossly. No stone, solid mass lesion or hydronephrosis visualized. OTHER FINDINGS: None. IMPRESSION: Solitary simple cyst upper midpole left kidney. The remainder of the examination is unremarkable bilaterally. No obstructive uropathy bilaterally.
[2018-02-03 12:50] VITALS: BP 135/77; PULSE 78; RESP 16; TEMP 98.4
[2018-02-03 12:51] VITALS: O2SAT 100
--- NOTE | 2018-02-03 15:08 | RAD ---
HISTORY: right hydro with ureteral stone on CT COMPARISON: Abdomen pelvis CT without contrast 01/31/2018. FINDINGS: BOWEL: No abnormal intra-abdominal calcifications identified. No obstruction. No free air. BONES: Normal. OTHER FINDINGS: None. IMPRESSION: Nonobstructive bowel gas pattern. No abnormal intra-abdominal calcification appreciable.
== END 2018-02-03 13:13 | disposition home or self-care (01) ==
LOC: H.ER 07:43
DX: N39.0 Urinary tract infection, site not specified (principal); K59.00 Constipation, unspecified; E11.9 Type 2 diabetes mellitus without complications; E78.00 Pure hypercholesterolemia, unspecified; I10 Essential (primary) hypertension; N20.1 Calculus of ureter; Z79.84 Long term (current) use of oral hypoglycemic drugs
CPT/HCPCS: 74018; 76770; 81003; 81025; 82948; 85025; 87086; 96374; 99284; J1885; J2405; J7030

== ENCOUNTER 2018-12-11 01:19 | Emergency (ER) | payer OTHER ==
[2018-12-11] MEDS ORDERED: Sodium Chloride 0.9% 1,000 ML IV STA ×2 (01:36→04:31)
[2018-12-11] MEDS ORDERED: Simethicone 80 mg Chewtab PO STA (01:37)
[2018-12-11 02:12] LABS: BASO # 0.1 K/uL (0.0-0.2); BASO % 0.4 % (0.0-2.0); EOS # 0.1 K/uL (0.0-0.7); EOS % 0.5 % (0.0-4.0); HEMOGLOBIN 13.2 g/dL (12.0-16.0); LYMPH # 1.9 K/uL (1.0-4.3); LYMPH % 13.8 % (20.0-40.0); MEAN CELL VOLUME 94.8 fl (81.0-99.0); MEAN CORPUSCULAR HEMOGLOBIN 30.6 pg (27.0-31.0); MEAN CORPUSCULAR HGB CONC 32.3 g/dL (33.0-37.0); MEAN PLATELET VOLUME 10.8 fl (7.2-11.7); MONO # 0.9 K/uL (0.0-0.8); MONO % 6.7 % (0.0-10.0); NEUT % 78.6 % (50.0-75.0); NRBC % 0.1 % (0.0-0.0); RBC 4.32 Mil/uL (3.80-5.20)
[2018-12-11 02:27] LABS: ALBUMIN 4.2 g/dL (3.5-5.0); ALT/SGPT 19 U/L (9-52); AST/SGOT 21 U/L (14-36); BLOOD UREA NITROGEN 24 mg/dl (7-17); CALCIUM 9.8 mg/dL (8.4-10.2); GFR NON-AFRICAN AMERICAN > 60; LIPASE 72 U/L (23-300)
[2018-12-11] MEDS ORDERED: Sodium Chloride 0.9% 50 ML IV ONE (02:45)
[2018-12-11] MEDS ORDERED: Iohexol 300 100 ML IJ ONE (02:45)
--- NOTE | 2018-12-11 03:33 | ED PDOC ---
HPI: Abdomen Time Seen by Provider: 12/11/18 01:28 Chief Complaint (Nursing): Abdominal Pain Chief Complaint (Provider): Abdominal Pain History Per: Patient History/Exam Limitations: no limitations Onset/Duration Of Symptoms: Hrs (x 8) Current Symptoms Are (Timing): Still Present Location Of Pain/Discomfort: RLQ, LLQ Quality Of Discomfort: "Pain" Associated Symptoms: Nausea, Vomiting, Constipation Last Bowel Movement: Yesterday Additional Complaint(s): 53 year old female with DM, high cholesterol and anxiety presents to the ED for evaluation of lower abdominal pain bilaterally associated with nausea and multiple episodes of vomiting since approximately 6 pm. Patient states she has been unable to defecate since yesterday morning. Offers no other medical complaints. PMD: Dr. David Hallman Past Medical History Reviewed: Historical Data, Nursing Documentation, Vital Signs Vital Signs: Last Vital Signs Temp 97.9 F 12/11/18 03:08 Pulse 81 12/11/18 03:08 Resp 17 12/11/18 03:08 BP 121/68 12/11/18 03:08 Pulse Ox 96 12/11/18 03:08 Primary Care Provider: David Hallman - Medical History PMH: Diabetes, HTN, Hypercholesterolemia Denies: HIV, Chronic Kidney Disease - Surgical History Surgical History: No Surg Hx - Family History Family History: States: Unknown Family Hx - Home Medications Home Medications: Ambulatory Orders Medication Instructions Recorded Amlodipine Besylate/Benazepril 1 cap PO DAILY 01/30/18 [Amlodipine-Benazepril 5-10 mg] Aspirin [Ecotrin] 81 mg PO DAILY 01/30/18 Clonazepam [Klonopin] 0.5 mg PO HS 01/30/18 Rosuvastatin Calcium [Crestor] 10 mg PO HS 01/30/18 metFORMIN [glucOPHAGE] 500 mg PO BID 01/30/18 Ciprofloxacin [Cipro] 500 mg PO BID #14 tab 01/31/18 Tamsulosin [Flomax] 0.4 mg PO DAILY #30 cap 01/31/18 Ketorolac Tromethamine [Toradol] 10 mg PO Q6H PRN #19 tab 02/03/18 Lubiprostone [Amitiza] 24 mcg PO Q12H #14 capsule 02/03/18 Dicyclomine [Bentyl] 20 mg PO BID #30 tab 12/11/18 Ondansetron ODT [Zofran ODT] 4 mg PO Q8 PRN #12 odt 12/11/18 - Allergies Allergies/Adverse Reactions: Allergies Allergy/AdvReac Type Severity Reaction Status Date / Time No Known Allergies Allergy Verified 01/29/18 20:00 Review of Systems ROS Statement: Except As Marked, All Systems Reviewed And Found Negative Gastrointestinal: Positive for: Nausea, Vomiting, Abdominal Pain, Constipation (unable to defecate since yesterday morning). Negative for: Diarrhea Physical Exam - Reviewed Nursing Documentation Reviewed: Yes Vital Signs Reviewed: Yes - Physical Exam Appears: Positive for: Uncomfortable Head Exam: Positive for: ATRAUMATIC, NORMAL INSPECTION, NORMOCEPHALIC Skin: Positive for: Normal Color, Warm, Dry Eye Exam: Positive for: EOMI, Normal appearance, PERRL Neck: Positive for: Normal, Painless ROM, Supple Cardiovascular/Chest: Positive for: Regular Rate, Rhythm. Negative for: Murmur Respiratory: Positive for: Normal Breath Sounds. Negative for: Respiratory Distress Gastrointestinal/Abdominal: Positive for: Soft (obese abdomen), Tenderness (mild tenderness to palpation at bilateral mid-quadrants). Negative for: Guarding, Rebound Back: Positive for: Normal Inspection. Negative for: L CVA Tenderness, R CVA Tenderness Extremity: Positive for: Normal ROM (x 4). Negative for: Deformity Neurological/Psych: Positive for: Awake, Alert, Normal Tone, Oriented (x 3). Negative for: Motor/Sensory Deficits - Laboratory Results Result Diagrams: 12/11/18 01:40 12/11/18 01:40 Lab Results: Total Bilirubin 0.3 mg/dl (0.2-1.3) 12/11/18 01:40 AST 21 U/L (14-36) 12/11/18 01:40 ALT 19 U/L (9-52) 12/11/18 01:40 Alkaline Phosphatase 74 U/L (38-126) 12/11/18 01:40 Total Protein 8.2 G/DL (6.3-8.2) 12/11/18 01:40 Albumin 4.2 g/dL (3.5-5.0) 12/11/18 01:40 Globulin 4.0 gm/dL (2.2-3.9) H 12/11/18 01:40 Albumin/Globulin Ratio 1.0 (1.0-2.1) 12/11/18 01:40 Lipase 72 U/L (23-300) 12/11/18 01:40 - ECG O2 Sat by Pulse Oximetry: 96 (RA) Pulse Ox Interpretation: Normal Medical Decision Making Medical Decision Makin:36 Impression: non-specific abdominal pain Differential diagnoses include but are not limited to: colitis vs diverticulitis vs obstruction vs constipation vs less likely kidney stones Orders: --CT Abd & Pelvis --EKG --CMP --CBC --Morphine 2 mg IV --Mylicon chew tab 80 mg PO --NS IV 1,000 mls --Toradol 30 mg IV --Zofran 4 mg IV --Urine cx --UA 03:02 Reglan ordered as pain persists. 04:13 CT Abd & Pelvis COMMENTS: 5.2 cm left ovarian cyst. This was not present on prior exam. The liver is of uniform attenuation without mass or defect. There is no intra or extrahepatic biliary ductal dilatation. The spleen is normal. The gallbladder is within normal limits. The pancreas is of normal contour and attenuation characteristics. There is no evidence of adrenal mass. Both kidneys demonstrate prompt and equal nephrograms. The kidneys are normal in size, shape and configuration. There is no evidence of renal or ureteral mass. No renal or ureteral calculi are identified. There is no hydroureter or hydronephrosis. No evidence for appendicitis. There is no bowel wall thickening. No evidence for small or large bowel obstruction. There is no evidence of abdominal ascites or lymphadenopathy. There is no evidence of intrinsic or extrinsic bladder mass. There is no pelvic ascites or lymphadenopathy. Images of the lung bases show no evidence of pleural or parenchymal mass. There are no pleural effusions. The bony structures are free of lytic or blastic lesions. IMPRESSION: 5.2 cm left ovarian cyst. This was not present on prior exam. No evidence of acute abdominal or pelvic pathology. 06:26 Patient informed of results. She reports improvement of symptoms and is stable for discharge. Advised to follow up with PMD and viscera washer. Warned patient against cannabis abuse and explained that symptoms could be related to cannabis abuse. Scribe Attestation: Documented by Marlyn Lindsay, acting as a scribe Evangelist Bellamy MD Provider Scribe Attestation: All medical record entries made by the Scribe were at my direction and personally dictated by me. I have reviewed the chart and agree that the record accurately reflects my personal performance of the history, physical exam, medical decision making, and the department course for this patient. I have also personally directed, reviewed, and agree with the discharge instructions and disposition. Disposition - Clinical Impression Clinical Impression: Cannabinoid hyperemesis syndrome - Patient ED Disposition Is Patient to be Admitted: No - Disposition Referrals: David Hallman [Staff Provider] - Disposition: Routine/Home Disposition Time: 06:26 Condition: IMPROVED Prescriptions: Dicyclomine [Bentyl] 20 mg PO BID #30 tab Ondansetron ODT [Zofran ODT] 4 mg PO Q8 PRN #12 odt PRN Reason: Nausea/Vomiting Instructions: Acute Abdomen (Belly Pain), Adult (DC), Nausea and Vomiting, Adult, Marijuana Use and Addiction (DC) Forms: [employer] (Liberian)
[2018-12-11 04:34] LABS: SQUAMOUS EPITHIAL 4 /hpf (0-5); URINE BILIRUBIN NEGATIVE (NEGATIVE); URINE BLOOD MODERATE (NEGATIVE); URINE CLARITY CLEAR (Clear); URINE COLOR STRAW (YELLOW); URINE GLUCOSE (UA) NEG (NEGATIVE); URINE LEUKOCYTE ESTERASE NEG Leu/uL (Negative); URINE PROTEIN NEGATIVE (NEGATIVE); URINE UROBILINOGEN 0.2-1.0 mg/dL (0.2-1.0)
[2018-12-11 04:46] LABS: BARBITURATES, UR NEGATIVE (NEGATIVE); BENZODIAZEPINES, UR NEGATIVE (NEGATIVE); OPIATES, UR POSITIVE (NEGATIVE); PHENCYCLIDINE, UR NEGATIVE (NEGATIVE)
[2018-12-11 06:49] VITALS: BP 129/86; PULSE 71; RESP 16; TEMP 98
--- NOTE | 2018-12-11 10:21 | CARD ---
APPROVED REPORT Date of service: 12/11/2018 EKG Measurement Heart [id number] <Conclusion> Normal sinus rhythm Normal Electrocardiogram
--- NOTE | 2018-12-11 11:31 | CT ---
Date of service: 12/11/2018 PROCEDURE: CT Abdomen and Pelvis with contrast HISTORY: lower abdominal pain COMPARISON: Abdomen and pelvis CT without contrast 01/31/2018. TECHNIQUE: Contrast dose: Omnipaque 300, 95 cc Radiation dose: Total exam DLP = 915.35 mGy-cm. This CT exam was performed using one or more of the following dose reduction techniques: Automated exposure control, adjustment of the mA and/or kV according to patient size, and/or use of iterative reconstruction technique. FINDINGS: LOWER THORAX: Stable fibrosis or linear atelectasis at the bilateral bases. No interval infiltrate pleural effusion or mass appreciable. Cardiomegaly again evident. LIVER: Unremarkable. No gross lesion or ductal dilatation. GALLBLADDER AND BILE DUCTS: Unremarkable. PANCREAS: Unremarkable. No gross lesion or ductal dilatation. SPLEEN: Tiny lucency at the spleen is of small to characterize with the spleen otherwise unremarkable appearing. ADRENALS: Unremarkable. No mass. KIDNEYS AND URETERS: No obstructive uropathy or radiodense urolithiasis identified at the bilateral kidneys. A small simple appearing cyst 1.7 cm is again seen at the upper to mid pole left kidney. Right renal parenchyma remains unremarkable diffusely. VASCULATURE: Unremarkable. No aortic aneurysm. No aortic atherosclerotic calcification or mural plaque present. BOWEL: Moderate fecal loading is seen at the ascending colon and proximal transverse segment with 1 or 2 mid transverse segment diverticula, nonacute. Limited retained fecal material seen throughout the remainder of the colon. No bowel obstruction. No gross mural thickening. APPENDIX: Normal appendix. PERITONEUM: Unremarkable. No free fluid. No free air. LYMPH NODES: Unremarkable. No enlarged lymph nodes. BLADDER: Unremarkable. REPRODUCTIVE: Left ovary appears mildly enlarged by an apparent cyst measuring 4.4 cm in the interval. BONES: No acute fracture. OTHER FINDINGS: Lymph nodes noted. IMPRESSION: 1. Trace diverticular changes mid transverse colon without diverticulitis. No bowel obstruction or overt pattern of colitis or enteritis throughout the abdomen and pelvis. 2. Simple cyst upper midpole left kidney 1.7 cm. 3. No definitive acute abdominal findings. 4. Interval 4.4 cm left adnexal cyst which can be better characterized by transvaginal or possibly transabdominal pelvic ultrasound. Preliminary report provided by Rayne, 12/11/2018, 4:11 a.m..
[2018-12-11 19:20] VITALS: O2SAT 96
== END 2018-12-11 06:49 | disposition home or self-care (01) ==
LOC: H.ER 01:19
DX: F12.188 Cannabis abuse with other cannabis-induced disorder (principal); E11.9 Type 2 diabetes mellitus without complications; E78.00 Pure hypercholesterolemia, unspecified; F12.10 Cannabis abuse, uncomplicated; I10 Essential (primary) hypertension; Z79.84 Long term (current) use of oral hypoglycemic drugs; N83.202 Unspecified ovarian cyst, left side
CPT/HCPCS: 74177; 80053; 80324; 80345; 80346; 80349; 80353; 80358; 80361; 81003; 82948; 83690; 83992; 85025; 87086; 93005; 96372; 96374; 96375; 96376; 99284; J1630; J1885; J2270; J2405; J2765; J7030; Q9967